=== PATIENT | male | born 1935 | race Caucasian/White ===

== ENCOUNTER 2025-04-27 11:49 | Emergency (ER) | payer MEDICARE, BC ==
[~2025-04-27] VITALS: Ht 167.6 cm; Wt 71.0 kg
[~2025-04-27 11:49] MED LIST: ASPI81TA53 PO; CLOP75TA34 PO; FAMO20TA47 PO; LISI5TAB22 PO; NO HOME MEDS; tamsulosin capsule PO
[2025-04-27 12:07] VITALS: BP 95/51; PULSE 71; RESP 18; TEMP 97.3; O2SAT 96
[2025-04-27 12:39] LABS: MEAN PLATELET VOLUME 8.6 FL (7.4-10.4); RED CELL DISTRIBUTION WIDTH 14.0 % (11.5-14.5)
[2025-04-27 12:55] LABS: CREATININE 1.26 MG/DL (0.60-1.10); TOTAL CARBON DIOXIDE 28.6 MMOL/L (24-32); eCRCL 37 ML/MIN; eGFR 54 ML/MIN
--- NOTE | 2025-04-27 13:36 | Physician Documentation ---
History of Present Illness ~ Chief Complaint: Constipation Stated Complaint: SEE CHIEF Time Seen by MD: 13:30 Primary Medical Doctor: NONE HPI This is an 89-year-old male brought in by his family member due to concern for chronic constipation that has been especially bad for the last two months after the patient had a stroke. Patient reports last bowel movement was yesterday and reports no pain or other acute symptoms or concerns. Patient's family members as he is concerned because the patient has such small bowel movements. Patient and family member report he has a follow up appointment on May 12 with primary care. Medication Reconciliation Allergies: Coded Allergies: No Known Allergies (Unverified , 03/02/25) Scheduled Aspirin (Children's Aspirin), 81 MG PO DAILY@0830 Clopidogrel Bisulfate (Clopidogrel), 75 MG PO DAILY Lisinopril (Lisinopril), 5 MG PO DAILY [tamsulosin capsule], 0.4 MG PO HS Scheduled PRN Famotidine (Pepcid AC), 1 TAB PO QDAY PRN PRN for heartburn Miscellaneous Medications Home Med List (No Home Medications), (Reported) Review of Systems ROS As stated above in the HPI, otherwise all systems are reviewed and negative. Physical Exam Vital Signs: Temperature: 97.3, Source: Temporal, Heart Rate: 71, Respiratory Rate: 18, BP: 95/51, Pulse Oximetry: 96, Weight: 71.000 Physical Exam VITALS: Reviewed and as above. GENERAL: Alert, nontoxic appearing, no apparent distress. HEENT: RESPIRATORY: No increased work of breathing, no respiratory distress, speaking in full clear sentences CHEST: CV: BACK: GI: MUSCULOSKELETAL: SKIN: NEURO: PSYCH: Progress Results/Orders Results/Orders Vital Signs 04/27/25 12:07 Temp 97.3 Pulse 71 Resp 18 B/P (MAP) 95/51 Pulse Ox 96 Laboratory Tests Test 04/27/25 12:22 White Blood Count 3.6 L Red Blood Count 4.78 Hemoglobin 13.5 L Hematocrit 40.1 L Mean Corpuscular Volume 83.9 Mean Corpuscular Hemoglobin 28.3 Mean Corpuscular Hemoglobin Concent 33.7 Red Cell Distribution Width 14.0 Platelet Count 219 Mean Platelet Volume 8.6 Neutrophils (%) (Auto) 64.8 Lymphocytes (%) (Auto) 21.4 Monocytes (%) (Auto) 11.5 Eosinophils (%) (Auto) 1.1 Basophils (%) (Auto) 1.2 H Neutrophils # (Auto) 2.3 Lymphocytes # (Auto) 0.8 L Monocytes # (Auto) 0.4 Eosinophils # (Auto) 0.0 Basophils # (Auto) 0.0 CBC Comment Sodium Level 137 Potassium Level 4.0 Chloride Level 100 Carbon Dioxide Level 28.6 Anion Gap 8 Blood Urea Nitrogen 30 H Creatinine 1.26 H Estimated GFR/1.73 m2 54 BUN/Creatinine Ratio 23.8 H Glucose Level 102 Calcium Level 10.6 H Total Bilirubin 1.0 Aspartate Amino Transf (AST/SGOT) 24 Alanine Aminotransferase (ALT/SGPT) 38 Alkaline Phosphatase 92 Total Protein 7.3 Albumin 3.8 Globulin 3.5 Albumin/Globulin Ratio 1.1 Chemistry Comments Medical Decision Making Additional information obtaine: family Findings This otherwise well 89-year-old male presented with his family member due to concern for chronic constipation and small bowel movements over the last two months, patient's family member reports patient has been only eating very small amounts of food, patient had discuss this with a his primary care provider and primary care provider believes this to be due to patient's low food intake, patient does have follow up with the primary care provider for an in-person visit on May 12. Patient reports feeling otherwise well with no acute symptoms or concerns including no abdominal pain and reports last bowel movement yesterday without concerns. Patient is well and has prompt follow up in his appropriate for outpatient follow up. Careful return to care precautions, follow up instructions, and home care instructions provided to patient and family member who verbalized understanding of all instructions. Diff Dx GI Bleed:Consideration: Unlikely: AE fistula, Angiodysplasia, Bleeding diathesis, Blood loss anemia, Carcinoma, Diverticulosis, Diverticulitis, Esophageal varicies, Esophagitis, Gastritis, Gastroenteritis, Inflammatory BD, Dolly-De Souza syndrome, Meckel's diverticulum, PUD, Other Diff Dx Pain:Considerations: Unlikely: AAA, Angina/[place], Aortic dissection, Appendicitis, Bowel obstruction, Cholangitis, Cholecystitis, Cholelithasis, Constipation, Diverticular disease, Esophageal rupture, Esophagitis, Gastritis, Gastroenteritis, GI hemorrhage, Hepatitis, Hernia, Inflammatory BD, Ischemic bowel, Mass, Pancreatitis, Porphyria, PUD, Testicular torsion, Trauma, intraabdominal, Urinary obstruction, Urinary tract infection, Urolithiasis, Other Diff Dx N/V/D:Considerations: Include: Bowel obstruction, Dehydration, Diverticulitis, Diverticulosis, Drug toxicity, Inflammatory BD Diff Dx Rectal:Considerations: Include: Impaction, Prostatitis, Rectal prolapse Departure Disposition: HOME / SELF CARE / HOMELESS Impression: Primary Impression: Constipation Qualified Codes: K59.00 - Constipation, unspecified Condition: Improved Discharge Instructions: Constipation, Adult Additional Instructions: It is reassuring you had a bowel movement yesterday you were reporting no a bdominal pain or rectal bleeding, your constipation may be from many factors though your labs did show you were dehydrated. Please increase your intake of fiber and fluids, you may also consider adding a daily stool softener as well. Please follow up with your primary care provider in the next few days or as scheduled. Please return to the emergency department for any new or worsening concerning symptoms but not limited to vomiting, abdominal pain, or bloody stools. An example of a fiber supplement is Metamucil. Example of a stool softener is docusate sodium Referrals: NO PRIMARY CARE PROVIDER (PCP) Education Educated: Patient, Family Educated regarding: diagnosis, treatment, prognosis, need for follow up Signature Scribe Signature: No scribe Attestation: The note accurately reflects work and decisions made by me.KEL Tripp 04/28/25 01:09 Parts of this note were created using [employer] voice recognition software program. While efforts were made to correct any mistakes made by this voice recognition software program, nonsensical phrases may remain in this note. In addition, there may be errors and syntax, grammar, content and spelling. ALEKSEY TREVINO Apr 27, 2025 13:36
== END 2025-04-27 13:40 | disposition home or self-care (01) ==
LOC: ER 11:51
DX: K59.00 Constipation, unspecified (principal); Z79.82 Long term (current) use of aspirin; Z79.899 Other long term (current) drug therapy
CPT/HCPCS: 36415; 80053; 85025; 99283